=== PATIENT | male | born 1945 | race Caucasian/White ===

== ENCOUNTER 2017-06-19 18:14 | Emergency (ER) | payer OTHER ==
[~2017-06-19] VITALS: Ht 175.3 cm; Wt 85.0 kg
[~2017-06-19 18:14] MED LIST: ALL300 PO; ASPCH81 PO; BND25X PO; CPR500 PO; LISI-461 PO; METR-163 PO; NAPR-1169 PO; PRLSR20 PO; SIMV80TA2 PO
[2017-06-19 18:27] VITALS: TEMP 36.9; Ht 175.3 cm; Wt 85.0 kg
[2017-06-19 18:32] VITALS: O2SAT 94
[2017-06-19] MEDS ORDERED: ALLO300T2 PO (18:47)
[2017-06-19] MEDS ORDERED: ASPI81TA28 PO (18:47)
--- NOTE | 2017-06-19 18:49 | DIAGNOSTIC IMAGING REPORT ---
CHEST 1 VW FRONT-NOT PORTABLE CLINICAL HISTORY: Off-balance/history cardiac stent. COMPARISON STUDY: No previous studies for comparison. FINDINGS: Note is made of moderate elevation of the left hemidiaphragm. Minimal bibasilar opacities favor atelectasis. There is a suspected hiatal hernia. There is mild cardiomegaly without evidence for pulmonary edema. There is no pneumothorax or pleural effusion. IMPRESSION: 1. No acute cardiopulmonary findings. 2. Moderate elevation of the left hemidiaphragm. 3. Suspected moderate to large hiatal hernia. Electronically signed by: Darin Brooke M.D. 06/19/2017 6:48 PM Dictated Date/Time: 06/19/2017 6:47 PM
[2017-06-19 19:06] LABS: BASO % 0.2 %; BASO ABS # 0.02 K/uL (0-0.2); EOS ABS # 0.16 K/uL (0-0.5); HEMATOCRIT 42.7 % (42-52); HEMOGLOBIN 15.1 g/dL (14.0-18.0); IG# 0.01 K/uL (0.00-0.02); LYMPH % 35.3 %; LYMPH ABS # 2.86 K/uL (1.2-3.4); MEAN CELL VOLUME 94.5 fL (80-100); MEAN CORPUSCULAR HEMOGLOBIN 33.4 pg (25-34); MEAN CORPUSCULAR HGB CONC 35.4 g/dl (32-36); MEAN PLATELET VOLUME 9.1 fL (7.4-10.4); MONO % 7.9 %; MONO ABS # 0.64 K/uL (0.11-0.59); NEUT % 54.5 %; NEUT ABS # 4.41 K/uL (1.4-6.5); PLATELET COUNT 151 K/uL (130-400); RED CELL DISTRIBUTION WIDTH CV 13.3 % (11.5-14.5); RED CELL DISTRIBUTION WIDTH SD 45.3 fL (36.4-46.3)
[2017-06-19 19:22] LABS: INR 1.1 (0.9-1.1); PTT PATIENT 25.2 SECONDS (21.0-31.0)
[2017-06-19 19:25] LABS: ALBUMIN 3.7 gm/dl (3.4-5.0); CALCIUM 8.4 mg/dl (8.5-10.1)
[2017-06-19 19:27] VITALS: BP 123/86; PULSE 59; O2SAT 97
[2017-06-19 19:30] LABS: CKMB 3.1 ng/ml (0.5-3.6); TOTAL PROTEIN 7.4 gm/dl (6.4-8.2)
[2017-06-19] MEDS ORDERED: OPTIRAY 320 IV PRN (20:00)
--- NOTE | 2017-06-19 20:21 | DIAGNOSTIC IMAGING REPORT ---
ANGIOGRAPHY HEAD COMBO CLINICAL HISTORY: Off-balance, slurred speech. COMPARISON STUDY: No previous studies for comparison. TECHNIQUE: Unenhanced and arterial phase imaging of the head was performed. Injection of 117 cc Optiray 320 IV was uneventful. Sagittal and coronal reconstructions as well as maximal intensity projections were reviewed on an independent 3-D workstation. FINDINGS: No acute intracranial hemorrhage, midline shift or mass effect is present. Ventricular system is unremarkable for age. Basilar cisterns are patent. There are no extra-axial collections. White matter hypodensity suggests small vessel disease. There are no findings to suggest acute dural sinus thrombosis or acute territorial infarct. There are no significant calvarial abnormalities. There is mild mucosal thickening of the sinuses. 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 There is no evidence for rupture. 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 No additional intracranial aneurysms are identified. There is no abrupt vessel cut off. There is minimal atherosclerotic plaque within the bilateral cavernous carotids. IMPRESSION: 1. 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 No evidence for rupture. Neurosurgical consultation is recommended. Findings discussed with Destinee Ma at time of dictation. 2. 4 mm left MCA trifurcation aneurysm. 3. No acute intracranial findings. 4. No abrupt vessel cut off. Electronically signed by: Darin Brooke M.D. 06/19/2017 8:20 PM Dictated Date/Time: 06/19/2017 8:03 PM
--- NOTE | 2017-06-19 20:30 | DIAGNOSTIC IMAGING REPORT ---
CT ANGIOGRAPHY OF THE NECK WITH CONTRAST CLINICAL HISTORY: HISTORY CARDIAC STENTS OFF BALANCE COMPARISON STUDY: No previous studies for comparison. Technique: CT angiography of the carotid and vertebral arteries was obtained using Ogorod 320 IV and 3D reconstruction on an independent workstation. NASCET criteria was utilized. A dose lowering technique was utilized adhering to the principles of ALARA. Findings: Lung apices are clear. There is no cervical lymphadenopathy. There are no suspicious osseous lesions. No cervical spine fracture is identified. There is moderate multilevel degenerative disc disease and facet arthrosis. Craniocervical junction is intact. There is mild S-shaped curvature of the cervical spine. There is moderate plaque within the proximal right internal carotid artery without significant stenosis. There is mild plaque within the proximal left internal carotid artery without stenosis. There is calcified plaque at the origin of the left vertebral artery which makes evaluation difficult. There is suspected mild to moderate stenosis at the origin of the left vertebral artery. The right vertebral artery is patent. There is mild mucosal thickening of the sinuses. IMPRESSION: 1. Moderate plaque within the proximal bilateral internal carotid arteries, greater on the right. No significant stenosis. No dissection. 2. Mild to moderate stenosis at the origin of the left vertebral artery. Electronically signed by: Darin Brooke M.D. 06/19/2017 8:28 PM Dictated Date/Time: 06/19/2017 8:21 PM
--- NOTE | 2017-06-19 21:39 | EMERGENCY ROOM VISIT NOTE ---
History First contact with patient: 18:22 Chief Complaint: ALCOHOL OVERDOSE Stated Complaint: ETOH Nursing Triage Summary: pt reports he felt dizzy this morning and then rubi 3-4 beers and 3 shots. Pt reports that he drinks about a case of beer/day. Hx of NV at age 57 with stents placed. VS stable [employer] and BSG 117. Pt is alert and oriented. Speech slurred. History of Present Illness The patient is a 71 year old male who presents to the Emergency Room via BLS with chief complaints of feeling off balance. The patient drinks alcohol on a daily basis. He states normally he drinks a case of beer a day. Today he had several beers and 2 shots of whiskey. He states that this morning when he woke up at 6 AM he felt disoriented and off balance. He states this has been going on intermittently for several months. He thought maybe he was having a stroke. The states in the morning she did not notice anything different with the patient. This afternoon when the son was at their house he stated he thought his speech was slurred. It is unclear if that is due to the alcohol or not. The patient currently denies any headache, dizziness or visual changes. The patient denies any chest pain or shortness of breath. The patient states he has not seen his doctor for 10 years. He does have a history of an NV at age 57 with 2 or 3 cardiac stents. Review of Systems 10 system review was performed and was negative unless stated otherwise history of present illness. Social History Smoking Status: Never Smoker Alcohol Use: heavy Marital Status: Housing Status: lives with family Current/Historical Medications Scheduled Allopurinol (Zyloprim), 300 MG PO DAILY Aspirin (Aspirin Ec), 81 MG PO DAILY Naproxen (Naprosyn), 500 MG PO BID Physical Exam Vital Signs Date Time Temp Pulse Resp B/P (MAP) Pulse Ox O2 Delivery O2 Flow Rate FiO2 06/19/17 19:27 59 20 123/86 97 Room Air 06/19/17 18:32 94 Room Air 06/19/17 18:27 36.9 79 20 137/91 94 Room Air 06/19/17 18:26 60 Physical Exam GENERAL: 71-year-old white male appears intoxicated. The patient's speech is slurred. MENTAL Status: Patient is alert and oriented. He is answering questions appropriately. EYES: PERRLA. EOMs intact. Funduscopic FACE: No visible facial droop noted. EARS: Canals clear. TMs without fluid level noted. NECK: Supple, no lymphadenopathy noted. No carotid bruits noted. LUNGS: Clear auscultation without wheezes rales or rhonchi. CARDIAC: Regular rate and rhythm without murmur. Pulses is full and equal throughout. NEURO:Cranial nerves two through 12 intact. Cerebellar function intact with [id number]. Patient had difficulty with fine motor maneuvers but stated it was due to his arthritis in his hands. Medical Decision & Procedures ER Provider Diagnostic Interpretation: CT ANGIOGRAPHY OF THE NECK WITH CONTRAST CLINICAL HISTORY: HISTORY CARDIAC STENTS OFF BALANCE COMPARISON STUDY: No previous studies for comparison. Technique: CT angiography of the carotid and vertebral arteries was obtained using Optiray 320 IV and 3D reconstruction on an independent workstation. NASCET criteria was utilized. A dose lowering technique was utilized adhering to the principles of ALARA. Findings: Lung apices are clear. There is no cervical lymphadenopathy. There are no suspicious osseous lesions. No cervical spine fracture is identified. There is moderate multilevel degenerative disc disease and facet arthrosis. Craniocervical junction is intact. There is mild S-shaped curvature of the cervical spine. There is moderate plaque within the proximal right internal carotid artery without significant stenosis. There is mild plaque within the proximal left internal carotid artery without stenosis. There is calcified plaque at the origin of the left vertebral artery which makes evaluation difficult. There is suspected mild to moderate stenosis at the origin of the left vertebral artery. The right vertebral artery is patent. There is mild mucosal thickening of the sinuses. IMPRESSION: 1. Moderate plaque within the proximal bilateral internal carotid arteries, greater on the right. No significant stenosis. No dissection. 2. Mild to moderate stenosis at the origin of the left vertebral artery. Electronically signed by: Darin Brooke M.D. 06/19/2017 8:28 PM ANGIOGRAPHY HEAD COMBO CLINICAL HISTORY: Off-balance, slurred speech. COMPARISON STUDY: No previous studies for comparison. TECHNIQUE: Unenhanced and arterial phase imaging of the head was performed. Injection of 117 cc Optiray 320 IV was uneventful. Sagittal and coronal reconstructions as well as maximal intensity projections were reviewed on an independent 3-D workstation. FINDINGS: No acute intracranial hemorrhage, midline shift or mass effect is present. Ventricular system is unremarkable for age. Basilar cisterns are patent. There are no extra-axial collections. White matter hypodensity suggests small vessel disease. There are no findings to suggest acute dural sinus thrombosis or acute territorial infarct. There are no significant calvarial abnormalities. There is mild mucosal thickening of the sinuses. 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 There is no evidence for rupture. 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 No additional intracranial aneurysms are identified. There is no abrupt vessel cut off. There is minimal atherosclerotic plaque within the bilateral cavernous carotids. IMPRESSION: 1. 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 No evidence for rupture. Neurosurgical consultation is recommended. Findings discussed with Destinee Ma at time of dictation. 2. 4 mm left MCA trifurcation aneurysm. 3. No acute intracranial findings. 4. No abrupt vessel cut off. Electronically signed by: Darin Brooke M.D. 06/19/2017 8:20 PM CHEST 1 VW FRONT-NOT PORTABLE CLINICAL HISTORY: Off-balance/history cardiac stent. COMPARISON STUDY: No previous studies for comparison. FINDINGS: Note is made of moderate elevation of the left hemidiaphragm. Minimal bibasilar opacities favor atelectasis. There is a suspected hiatal hernia. There is mild cardiomegaly without evidence for pulmonary edema. There is no pneumothorax or pleural effusion. IMPRESSION: 1. No acute cardiopulmonary findings. 2. Moderate elevation of the left hemidiaphragm. 3. Suspected moderate to large hiatal hernia. Electronically signed by: Darin Brooke M.D. 06/19/2017 6:48 PM Laboratory Results 06/19/17 18:52 Red Blood Count 4.52, Mean Corpuscular Volume 94.5, Mean Corpuscular Hemoglobin 33.4, Mean Corpuscular Hemoglobin Concent 35.4, Mean Platelet Volume 9.1, Neutrophils (%) (Auto) 54.5, Lymphocytes (%) (Auto) 35.3, Monocytes (%) (Auto) 7.9, Eosinophils (%) (Auto) 2.0, Basophils (%) (Auto) 0.2, Neutrophils # (Auto) 4.41, Lymphocytes # (Auto) 2.86, Monocytes # (Auto) 0.64, Eosinophils # (Auto) 0.16, Basophils # (Auto) 0.02 2/25/18 18:52 Test 06/19/17 18:43 06/19/17 18:52 06/19/17 18:57 06/19/17 19:30 Ethyl Alcohol mg/dL 295.7 mg/dl (0-3) White Blood Count 8.10 K/uL (4.8-10.8) Red Blood Count 4.52 M/uL (4.7-6.1) Hemoglobin 15.1 g/dL (14.0-18.0) Hematocrit 42.7 % (42-52) Mean Corpuscular Volume 94.5 fL (80-100) Mean Corpuscular Hemoglobin 33.4 pg (25-34) Mean Corpuscular Hemoglobin Concent 35.4 g/dl (32-36) Platelet Count 151 K/uL (130-400) Mean Platelet Volume 9.1 fL (7.4-10.4) Neutrophils (%) (Auto) 54.5 % Lymphocytes (%) (Auto) 35.3 % Monocytes (%) (Auto) 7.9 % Eosinophils (%) (Auto) 2.0 % Basophils (%) (Auto) 0.2 % Neutrophils # (Auto) 4.41 K/uL (1.4-6.5) Lymphocytes # (Auto) 2.86 K/uL (1.2-3.4) Monocytes # (Auto) 0.64 K/uL (0.11-0.59) Eosinophils # (Auto) 0.16 K/uL (0-0.5) Basophils # (Auto) 0.02 K/uL (0-0.2) RDW Standard Deviation 45.3 fL (36.4-46.3) RDW Coefficient of Variation 13.3 % (11.5-14.5) Immature Granulocyte % (Auto) 0.1 % Immature Granulocyte # (Auto) 0.01 K/uL (0.00-0.02) Prothrombin Time 11.6 SECONDS (9.0-12.0) Prothromb Time International Ratio 1.1 (0.9-1.1) Activated Partial Thromboplast Time 25.2 SECONDS (21.0-31.0) Partial Thromboplastin Ratio 1.0 Anion Gap 8.0 mmol/L (3-11) Est Creatinine Clear Calc Drug Dose 72.2 ml/min Estimated GFR () 86.8 Estimated GFR (Non- 74.9 BUN/Creatinine Ratio 11.3 (10-20) Calcium Level 8.4 mg/dl (8.5-10.1) Total Bilirubin 0.5 mg/dl (0.2-1) Direct Bilirubin 0.2 mg/dl (0-0.2) Aspartate Amino Transf (AST/SGOT) 31 U/L (15-37) Alanine Aminotransferase (ALT/SGPT) 29 U/L (12-78) Alkaline Phosphatase 70 U/L (45-117) Total Creatine Kinase 148 U/L (39-308) Creatine Kinase MB 3.1 ng/ml (0.5-3.6) Creatine Kinase MB Ratio 2.1 (0-3.0) Total Protein 7.4 gm/dl (6.4-8.2) Albumin 3.7 gm/dl (3.4-5.0) Lipase 160 U/L (73-393) Bedside Troponin I < 0.030 ng/ml (0-0.045) Urine Color YELLOW Urine Appearance CLEAR (CLEAR) Urine pH 5.0 (4.5-7.5) Urine Specific [place] 1.007 (1.000-1.030) Urine Protein TRACE (NEG) Urine Glucose (UA) NEG (NEG) Urine Ketones NEG (NEG) Urine Occult Blood NEG (NEG) Urine Nitrite NEG (NEG) Urine Bilirubin NEG (NEG) Urine Urobilinogen NEG (NEG) Urine Leukocyte Esterase NEG (NEG) Urine WBC (Auto) 0 /hpf (0-5) Urine RBC (Auto) 0-4 /hpf (0-4) Urine Hyaline Casts (Auto) 0 /lpf (0-5) Urine Epithelial Cells (Auto) 0-5 /lpf (0-5) Urine Bacteria (Auto) NEG (NEG) ECG Per My Interpretation Indication: other (Off-balance/ataxia) Rhythm: sinus with SA Findings: 1st degree AV block, no acute ischemic change ED Course Patient was evaluated. EKG was ordered and interpreted as above without any acute findings. The patient's EMR and medication list were reviewed. The patient was placed on a monitor and continuous pulse ox. CBC and differential, complete metabolic profile, coags, CK-MB, [id number] troponin, renal profile was ordered. Medical alcohol was ordered and was 295.7. Urinalysis was ordered. Chest x-ray was ordered and interpreted as above without any acute findings besides a large hiatal hernia.. CT of the head and CT angiogram of the head and neck was also ordered. This was interpreted by the radiologist as above. Labs are reviewed. The patient CBC and complete metabolic profile were unremarkable. The patient's [id number] troponin was normal. Urine dip was negative. Urinalysis was negative. CT of the head and angiogram revealed a 1.1 cm aneurysm as well as a 4 mm aneurysm. There was also some stenosis noted in the internal carotid arteries as well as the left vertebral artery. The patient's case was discussed with Dr. Santiago who independently evaluated the patient and agree with treatment plan. The plan was to keep the patient here until he was clinically sober and then reevaluate the patient. In the interim we would contact [facility] neurosurgery about the patient for follow-up. I went to inform the patient of the treatment plan and he had already ripped out his IV site and was dressed and was sitting on the edge of the stretcher and stated he was going home. I discussed the findings with both the patient and his family members. The patient then informed me that he was told 10 years ago that he had an aneurysm and they wanted to send him to neurosurgery at that time and he declined. The patient states he did not want to do anything at that time and he does not want to do anything now. I discussed the risks with the patient I am not getting follow-up for the findings. This included intracranial bleed, stroke, . He verbalized understanding. The family members also did not want to stay until the patient was clinically sober for us to reevaluate the patient. They agreed to sign out AMA I had both the patient and the son who was sober signed the AMA papers. Medical Decision Differential diagnosis include alcohol intoxication, stroke, TIA, NV, a UTI with altered mental status, aneurysm, intracranial bleed Due to the patient's findings on CT, we felt it was necessary to keep the patient until he was clinically sober to reevaluate the patient neurologically. Also we wanted to make sure that the patient had follow-up with neurosurgery by contacting [facility] while he was in the emergency room. The patient did not agree with treatment plan and signed out AMA. See emergency room course for further discussion. [place] Drug Monitoring Program Search Results: patient reviewed within database Medication Reconcilliation Current Medication List: was personally reviewed by me Blood Pressure Screening Patient's blood pressure: Normal blood pressure Impression Primary Impression: Alcohol use with intoxication Additional Impressions: Brain aneurysm Vertebral artery stenosis Internal carotid artery stenosis Departure Information Dispostion Against Medical Advice Condition GOOD Referrals No Doctor, Assigned (PCP) Forms HOME CARE DOCUMENTATION FORM, IMPORTANT VISIT INFORMATION Patient Instructions Aneurysm Brain, My [facility] Additional Instructions You signed out AGAINST MEDICAL ADVICE today from the emergency room. It was recommended that you stay until you were clinically sober for reevaluation. Also we wanted to contact neurosurgery about your aneurysm and he declined. Recommend follow-up with neurosurgery on your own for definitive treatment. If you do not follow-up there is possibility of aneurysm rupture and . Problem Qualifiers
== END 2017-06-19 21:09 | disposition left against medical advice (07) ==
LOC: EDBD 18:14 → C.EDB 18:17
DX: F10.129 Alcohol abuse with intoxication, unspecified (principal); I67.1 Cerebral aneurysm, nonruptured; I65.02 Occlusion and stenosis of left vertebral artery; I65.23 Occlusion and stenosis of bilateral carotid arteries; Y90.8 Blood alcohol level of 240 mg/100 ml or more; Z53.21 Procedure and treatment not carried out due to patient leaving prior to being seen by health care provider; I25.2 Old myocardial infarction; Z95.5 Presence of coronary angioplasty implant and graft; Z79.82 Long term (current) use of aspirin; Z79.1 Long term (current) use of non-steroidal anti-inflammatories (NSAID)

== ENCOUNTER 2020-01-28 19:08 | Inpatient (IN) ==
[~2020-01-28 19:08] MED LIST changes: -ALL300 PO; -ASPCH81 PO; -BND25X PO; -CPR500 PO; -LISI-461 PO; -METR-163 PO; -NAPR-1169 PO; -PRLSR20 PO; +RAPID SEQUENCE INDUCTION BAG ONE; -SIMV80TA2 PO
--- OUTSIDE RECORDS SUMMARY | 2020-01-28 19:11 | External Medical Summary | Continuity of Care Document ---
:1945 Author Name Tello Rowley Address Unavailable Unavailable , Care Team Providers Name Role Phone Collette IYER Unavailable [email or web address] Unavailable Unavailable Problems Active medical history not documented Allergies and Adverse Reactions Allergy history not documented Medications Medications not documented Procedures Procedures not documented Immunizations Immunizations not documented Plan of Treatment Planned Observations Planned Goals not documented Results No Known Results Results not documented
[2020-01-28] MEDS ORDERED: SODIUM CHLORIDE 0.9% 500 ML IV SCH (19:30)
[2020-01-28 19:32] LABS: Basophils # (auto) 0.03 K/uL (0-0.2); Basophils % (auto) 0.2 %; Eosinophils # (auto) 0.05 K/uL (0-0.5); Eosinophils % (auto) 0.3 %; Hematocrit (blood only) 42.1 % (42-52); Hemoglobin 14.2 g/dL (14.0-18.0); Immature Granulocytes # (auto) 0.08 K/uL (0.00-0.02); Immature Granulocytes % (auto) 0.5 %; Lymphocytes # (auto) 2.18 K/uL (1.2-3.4); Lymphocytes % (auto) 12.5 %; Mean Corpuscular Hemoglobin 32.9 pg (25-34); Mean Corpuscular Hgb Conc 33.7 g/dL (32-36); Mean Corpuscular Volume 97.5 fL (80-100); Mean Platelet Volume 9.2 fL (7.4-10.4); Monocytes # (auto) 1.24 K/uL (0.11-0.59); Monocytes % (auto) 7.1 %; Neutrophils # (auto) 13.88 K/uL (1.4-6.5); Neutrophils % (auto) 79.4 %; Platelet Count 177 K/uL (130-400); RDW Coefficient of Variation 12.9 % (11.5-14.5); RDW Standard Deviation 46.1 fL (36.4-46.3); Red Blood Count 4.32 M/uL (4.7-6.1); White Blood Count 17.46 K/uL (4.8-10.8)
--- NOTE | 2020-01-28 19:40 | Emergency Department Note ---
History of Present Illness General Chief Complaint: Unresponsive Source: patient Mode of arrival: ambulatory Limitations: no limitations History of Present Illness Provider complaint: altered mental status This is a 74-year-old male who presents to the ED via ambulance unresponsive. The patient was last known well about 2:30 PM. About 5 or 6 PM, the patient was found by family unresponsive. EMS was called. The patient has a reported history of cardiac stents and has been found in A. fib per EMS. The patient's prehospital blood sugar was 204. 0.4 mg of Narcan was administered without improvement. The patient had a blood pressure prehospital of 150/80 and an axillary temp of 96. He was saturating at 100% with BVM assist. No additional history is available. Family has not yet arrived. Home Medications Home Medications Medication Instructions Recorded Confirmed Type Unobtainable 01/29/20 01/29/20 History Allergies Allergy/AdvReac Type Severity Reaction Status Date / Time warfarin Allergy Unknown . Unverified 10/17/17 09:48 Past Med/Surg History Social History Smoking Status: Unknown if ever smoked Review of Systems A total of 10 systems reviewed and were otherwise negative Physical Exam Vital Signs Vital Signs - 24 hr 01/28/20 19:14 01/28/20 19:29 01/28/20 19:30 Pulse Rate 101 H Pulse Rate [Right Finger] Respiratory Rate Respiratory Effort / Characteristics Respiratory Depth Blood Pressure 189/98 H Blood Pressure [Right Arm] Blood Pressure Mean 128 Blood Pressure Mean [Right Arm] Blood Pressure Position Lying Blood Pressure Position [Right Arm] Pulse Oximetry 94 100 Oxygen Delivery Method Ambu-Bag Mechanical Vent Mechanical Vent Fraction of Inspired Oxygen Sepsis Recent Fever Within 48 Hours No Sepsis New/Unexplained Change in Mental Status No Sepsis Action Taken by Nursing No Action Required End-Tidal CO2 01/28/20 19:35 01/28/20 19:45 01/28/20 20:07 Pulse Rate 59 L Pulse Rate [Right Finger] 54 L 91 H Respiratory Rate 20 20 18 Respiratory Effort / Characteristics Mechanically Ventilated Mechanically Ventilated Respiratory Depth Blood Pressure Blood Pressure [Right Arm] 152/88 H 174/89 H Blood Pressure Mean Blood Pressure Mean [Right Arm] 109 117 Blood Pressure Position Blood Pressure Position [Right Arm] Lying Lying Pulse Oximetry 99 99 100 Oxygen Delivery Method Mechanical Vent Mechanical Vent Fraction of Inspired Oxygen 40 Sepsis Recent Fever Within 48 Hours Sepsis New/Unexplained Change in Mental Status Sepsis Action Taken by Nursing End-Tidal CO2 26 01/28/20 20:23 01/28/20 20:44 01/28/20 21:23 Pulse Rate 61 Pulse Rate [Right Finger] 44 L 50 L Respiratory Rate 18 18 18 Respiratory Effort / Characteristics Mechanically Ventilated Mechanically Ventilated Respiratory Depth Blood Pressure Blood Pressure [Right Arm] 153/74 H 128/57 L Blood Pressure Mean Blood Pressure Mean [Right Arm] 100 80 Blood Pressure Position Blood Pressure Position [Right Arm] Lying Lying Pulse Oximetry 100 100 100 Oxygen Delivery Method Mechanical Vent Mechanical Vent Fraction of Inspired Oxygen 40 Sepsis Recent Fever Within 48 Hours Sepsis New/Unexplained Change in Mental Status Sepsis Action Taken by Nursing End-Tidal CO2 29 01/28/20 22:50 01/28/20 23:00 01/28/20 23:15 Pulse Rate 65 59 L Pulse Rate [Right Finger] 72 Respiratory Rate 19 12 16 Respiratory Effort / Characteristics Respiratory Depth Normal Blood Pressure 149/91 H 155/91 H Blood Pressure [Right Arm] 149/82 H Blood Pressure Mean 115 114 Blood Pressure Mean [Right Arm] 104 Blood Pressure Position Blood Pressure Position [Right Arm] Lying Pulse Oximetry 92 92 92 Oxygen Delivery Method Room Air Fraction of Inspired Oxygen Sepsis Recent Fever Within 48 Hours Sepsis New/Unexplained Change in Mental Status Sepsis Action Taken by Nursing End-Tidal CO2 01/28/20 23:31 01/28/20 23:46 01/29/20 00:00 Pulse Rate 77 66 79 Pulse Rate [Right Finger] Respiratory Rate 14 16 16 Respiratory Effort / Characteristics Respiratory Depth Blood Pressure 153/77 H 161/78 H 162/104 H Blood Pressure [Right Arm] Blood Pressure Mean 120 111 114 Blood Pressure Mean [Right Arm] Blood Pressure Position Blood Pressure Position [Right Arm] Pulse Oximetry 93 95 93 Oxygen Delivery Method Fraction of Inspired Oxygen Sepsis Recent Fever Within 48 Hours Sepsis New/Unexplained Change in Mental Status Sepsis Action Taken by Nursing End-Tidal CO2 01/29/20 00:16 01/29/20 00:31 01/29/20 00:46 Pulse Rate 50 L 55 L 62 Pulse Rate [Right Finger] Respiratory Rate 16 16 16 Respiratory Effort / Characteristics Respiratory Depth Blood Pressure 151/106 H 169/86 H 151/97 H Blood Pressure [Right Arm] Blood Pressure Mean 119 106 109 Blood Pressure Mean [Right Arm] Blood Pressure Position Blood Pressure Position [Right Arm] Pulse Oximetry 93 94 94 Oxygen Delivery Method Fraction of Inspired Oxygen Sepsis Recent Fever Within 48 Hours Sepsis New/Unexplained Change in Mental Status Sepsis Action Taken by Nursing End-Tidal CO2 01/29/20 01:00 01/29/20 01:16 Pulse Rate 64 55 L Pulse Rate [Right Finger] Respiratory Rate 16 16 Respiratory Effort / Characteristics Respiratory Depth Blood Pressure 158/91 H 161/81 H Blood Pressure [Right Arm] Blood Pressure Mean 105 118 Blood Pressure Mean [Right Arm] Blood Pressure Position Blood Pressure Position [Right Arm] Pulse Oximetry 94 93 Oxygen Delivery Method Fraction of Inspired Oxygen Sepsis Recent Fever Within 48 Hours Sepsis New/Unexplained Change in Mental Status Sepsis Action Taken by Nursing End-Tidal CO2 CONSTITUTIONAL/VITAL SIGNS: Reviewed / noted above. GENERAL: The patient is unresponsive to painful stimuli. He does appear to be breathing but in an agonal way. INTEGUMENTARY: Warm, dry, and [place]. HEAD: Normocephalic. EYES: without scleral icterus or trauma. ENT/OROPHARYNX: Clear. LYMPHADENOPATHY/NECK: Is supple without lymphadenopathy or meningismus. RESPIRATORY: Coarse rhonchi bilaterally. CARDIOVASCULAR: Regular rate and slightly irregular rhythm. GI/ABDOMEN: Soft and nontender. No organomegaly or pulsatile mass. EXTREMITIES: Warm and well perfused. BACK: No CVA tenderness. NEUROLOGICAL: Patient is unresponsive. No Babinski response. No response to painful stimuli in extremities. Agonal breathing. MUSCULOSKELETAL: Normally developed with good muscle tone. No obvious trauma. TRIAGE NURSING DOCUMENTATION REVIEWED. Procedures ABG Interpretation ABG Interpretation 1: ABG Results: pH 7.4, PCO2 is 29.9, PO2 is 95. Interpretation: abnormal Additional Comments: Normal pH. Hyperventilation. Good oxygenation. This was done on 40% FiO2 at a rate of 18 mm tidal volume of 450. Intubation Time out performed: Yes sedative: none paralytic: Succinylcholine Mg Given: 100 Laryngoscope: fiber optic video scope ET Tube Size: 7.5 ET Tube Uncuffed: Yes Tube Secured Depth (cm): 24 Tube Secured Location: lips Tube Placement Confirmation: visualized tube passing through cords, equal breath sounds bilaterally, no breath sounds over epigastrium and confirmation by capnometry Patient Tolerated Procedure: well Intubation Complications: none Course Administered Medications Discontinued Medications Sodium Chloride (Nss) 500 mls @ 999 mls/hr IV .Q31M [facility] Stop: 01/28/20 20:00 Last Infusion: 01/29/20 00:21 Dose: 0 mls/hr Documented by: [id number] Admin: 01/28/20 19:35 Dose: 999 mls/hr Documented by: [id number] Lorazepam (Ativan) 2 mg in 4 mls @ 4 mls/min IV NOW STA Stop: 01/28/20 19:45 Last Admin: 01/28/20 19:45 Dose: 4 mls/min Documented by: [id number] Lorazepam (Ativan) 2 mg in 4 mls @ 4 mls/min IV NOW STA Stop: 01/28/20 20:34 Last Admin: 01/28/20 20:43 Dose: 4 mls/min Documented by: [id number] Ioversol (Optiray 320 125ml) 120 ml IV ONCE ONE Stop: 01/28/20 19:53 Last Admin: 01/28/20 19:52 Dose: 120 ml Documented by: [id number] Lorazepam (Lorazepam 2 Mg/4 Ml Vial) Confirm Administered Dose 2 mg .ROUTE .STK- MED ONE Stop: 01/28/20 19:46 Last Admin: 01/28/20 20:06 Dose: Not Given Documented by: [id number] Lorazepam (Lorazepam 2 Mg/4 Ml Vial) Confirm Administered Dose 2 mg .ROUTE .STK- MED ONE Stop: 01/28/20 22:47 Last Admin: 01/28/20 23:07 Dose: 2 mg Documented by: [id number] Miscellaneous (Rapid Sequence Induction Bag) Confirm Administered Dose 1 ea .ROUTE .STK-MED ONE Stop: 01/28/20 19:02 Last Admin: 01/28/20 19:22 Dose: 1 ea Documented by: [id number] Morphine Sulfate (Morphine Sulfate 4 Mg/Ml 1 Ml Carp\Vial) Confirm Administered Dose 4 mg .ROUTE .STK-MED ONE Stop: 01/28/20 20:56 Last Admin: 01/28/20 21:02 Dose: 4 mg Documented by: [id number] Morphine Sulfate (Morphine Sulfate 4 Mg/Ml 1 Ml Carp\Vial) Confirm Administered Dose 4 mg .ROUTE .STK-MED ONE Stop: 01/28/20 22:51 Last Admin: 01/28/20 23:07 Dose: 4 mg Documented by: [id number] Morphine Sulfate (Morphine Sulfate 10 Mg/Ml Carp/Vial) Confirm Administered Dose 10 mg .ROUTE .STK-MED ONE Stop: 01/28/20 23:19 Last Increment: 01/28/20 23:21 Dose: 6 mg Documented by: [id number] Medical Decision Making Differential Diagnosis Differential includes acute cardiac dysrhythmia, myocardial infarction, CVA, TIA, dehydration, anemia, electrolyte disturbance, seizure, trauma, intracranial bleeding, acute vascular catastrophe, thoracic aortic dissection, PE, abdominal aortic aneurysm rupture, infection, hypoglycemia, overdose, trauma. Medical Records Attestation: I reviewed the patient's medical records. Home Medications Current Medication List: was personally reviewed by me Laboratory Data Attestation: I reviewed the patient's lab results. : 01/28/20 19:13 01/28/20 19:13 Lab Results 01/28/20 01/28/20 01/28/20 Range/Units 19:13 19:13 19:13 WBC 17.46 H (4.8-10.8) K/uL RBC 4.32 L (4.7-6.1) M/uL Hgb 14.2 (14.0-18.0) g/dL POC Hgb (14.0-18.0) g/dl Hct 42.1 (42-52) % POC Hct (42-52) % MCV 97.5 (80-100) fL MCH 32.9 (25-34) pg MCHC 33.7 (32-36) g/dL RDW Std Deviation 46.1 (36.4-46.3) fL RDW Coeff of Toni 12.9 (11.5-14.5) % Plt Count 177 (130-400) K/uL MPV 9.2 (7.4-10.4) fL Immature Gran % (Auto) 0.5 % Neut % (Auto) 79.4 % Lymph % (Auto) 12.5 % Robertson % (Auto) 7.1 % Eos % (Auto) 0.3 % Baso % (Auto) 0.2 % Neut # (Auto) 13.88 H (1.4-6.5) K/uL Lymph # (Auto) 2.18 (1.2-3.4) K/uL Robertson # (Auto) 1.24 H (0.11-0.59) K/uL Eos # (Auto) 0.05 (0-0.5) K/uL Baso # (Auto) 0.03 (0-0.2) K/uL Immature Gran # (Auto) 0.08 H (0.00-0.02) K/uL PT 12.6 H (9.0-12.0) Seconds INR 1.2 H (0.9-1.1) POC Sodium (135-144) mmol/L Sodium 138 (136-145) mmol/L POC Potassium (3.3-5.0) mmol/L Potassium 2.9 L (3.5-5.1) mmol/L POC Chloride (101-112) mmol/L Chloride 106 (98-107) mmol/L Carbon Dioxide 19 L (21-32) mmol/L POC Total CO2 (24-31) mmol/L Anion Gap 13.0 H (3-11) POC Anion Gap (16-25) mmol/L POC BUN (7-18) mg/dl BUN 13 (7-18) mg/dl Creatinine 1.01 (0.6-1.4) mg/dl POC Creatinine (0.6-1.3) mg/dl Est Cr Clr Drug Dosing 73.3 ml/min Est GFR ( Amer) 83.9 Est GFR (Non-Af Amer) 72.4 BUN/Creatinine Ratio 13.2 (10-20) Glucose 231 H (70-99) mg/dl POC Glucose (other) (70-99) mg/dl Lactate (0.4-2.0) mmol/L Calcium 8.7 (8.5-10.1) mg/dl POC Ioniz Calcium [place] (1.12-1.32) mmol/l Magnesium 1.7 L (1.8-2.4) mg/dl Total Bilirubin 1.2 H (0.2-1) mg/dl AST 36 (15-37) U/L ALT 26 (12-78) U/L Alkaline Phosphatase 74 (45-117) U/L Ammonia (11-32) umol/L Total Creatine Kinase 146 (39-308) U/L Troponin I < 0.015 (0-0.045) ng/ml Total Protein 7.7 (6.4-8.2) gm/dl Albumin 3.8 (3.4-5.0) gm/dl Globulin 3.9 (2.5-4.0) gm/dl Albumin/Globulin Ratio 1.0 (0.9-2) TSH 5.410 H (0.300-4.500) uIu/ml Free T4 1.18 (0.8-1.6) ng/dl Urine Color Urine Appearance (Clear) Urine pH (4.5-7.5) Ur Specific [place] (1.000-1.030) Urine Protein (Negative) Urine Glucose (UA) (Negative) Urine Ketones (Negative) Urine Blood (Negative) Urine Nitrite (Negative) Urine Bilirubin (Negative) Urine Urobilinogen (Negative) Ur Leukocyte Esterase (Negative) Urine WBC (Auto) (0-5) /hpf Urine RBC (Auto) (0-4) /hpf U Hyaline Cast (Auto) (0-5) /lpf U Epithel Cells (Auto) (0-5) /lpf Urine Bacteria (Auto) (Negative) Salicylates (2.8-20) mg/dl Urine Opiates Screen (Neg) Ur Methadone, Qual (Neg) Acetaminophen (10-30) ug/ml Urine Barbiturates (Neg) Ur Phencyclidine (PCP) (Neg) U Amphetamin/Meth Scrn (Neg) MDMA (Ecstasy) Screen (Neg) U Benzodiazepines Scrn (Neg) Ur Cocaine Metabolite (Neg) U Marijuana (THC) Screen (Neg) Ethyl Alcohol mg/dL (0-3) mg/dl Blood Type Antibody Screen 01/28/20 01/28/20 01/28/20 Range/Units 19:13 19:21 19:24 WBC (4.8-10.8) K/uL RBC (4.7-6.1) M/uL Hgb (14.0-18.0) g/dL POC Hgb 13.9 L (14.0-18.0) g/dl Hct (42-52) % POC Hct 41 L (42-52) % MCV (80-100) fL MCH (25-34) pg MCHC (32-36) g/dL RDW Std Deviation (36.4-46.3) fL RDW Coeff of Toni (11.5-14.5) % Plt Count (130-400) K/uL MPV (7.4-10.4) fL Immature Gran % (Auto) % Neut % (Auto) % Lymph % (Auto) % [place] % (Auto) % Eos % (Auto) % Baso % (Auto) % Neut # (Auto) (1.4-6.5) K/uL Lymph # (Auto) (1.2-3.4) K/uL [place] # (Auto) (0.11-0.59) K/uL Eos # (Auto) (0-0.5) K/uL Baso # (Auto) (0-0.2) K/uL Immature Gran # (Auto) (0.00-0.02) K/uL PT (9.0-12.0) Seconds INR (0.9-1.1) POC Sodium 139 (135-144) mmol/L Sodium (136-145) mmol/L POC Potassium 2.9 L (3.3-5.0) mmol/L Potassium (3.5-5.1) mmol/L POC Chloride 104 (101-112) mmol/L Chloride (98-107) mmol/L Carbon Dioxide (21-32) mmol/L POC Total CO2 18 L (24-31) mmol/L Anion Gap (3-11) POC Anion Gap 21.0 (16-25) mmol/L POC BUN 13 (7-18) mg/dl BUN (7-18) mg/dl Creatinine (0.6-1.4) mg/dl POC Creatinine 0.7 (0.6-1.3) mg/dl Est Cr Clr Drug Dosing ml/min Est GFR ( Amer) Est GFR (Non-Af Amer) BUN/Creatinine Ratio (10-20) Glucose (70-99) mg/dl POC Glucose (other) 234 H (70-99) mg/dl Lactate (0.4-2.0) mmol/L Calcium (8.5-10.1) mg/dl POC Ioniz Calcium [place] 1.08 L (1.12-1.32) mmol/l Magnesium (1.8-2.4) mg/dl Total Bilirubin (0.2-1) mg/dl AST (15-37) U/L ALT (12-78) U/L Alkaline Phosphatase (45-117) U/L Ammonia (11-32) umol/L Total Creatine Kinase (39-308) U/L Troponin I (0-0.045) ng/ml Total Protein (6.4-8.2) gm/dl Albumin (3.4-5.0) gm/dl Globulin (2.5-4.0) gm/dl Albumin/Globulin Ratio (0.9-2) TSH (0.300-4.500) uIu/ml Free T4 (0.8-1.6) ng/dl Urine Color Yellow Urine Appearance Clear (Clear) Urine pH 5.5 (4.5-7.5) Ur Specific [place] 1.017 (1.000-1.030) Urine Protein 2+ H (Negative) Urine Glucose (UA) 2+ H (Negative) Urine Ketones 1+ H (Negative) Urine Blood Trace H (Negative) Urine Nitrite Negative (Negative) Urine Bilirubin Negative (Negative) Urine Urobilinogen Negative (Negative) Ur Leukocyte Esterase Negative (Negative) Urine WBC (Auto) 0 (0-5) /hpf Urine RBC (Auto) 0-4 (0-4) /hpf U Hyaline Cast (Auto) 1-5 (0-5) /lpf U Epithel Cells (Auto) 5-10 H (0-5) /lpf Urine Bacteria (Auto) Negative (Negative) Salicylates < 1.7 L (2.8-20) mg/dl Urine Opiates Screen (Neg) Ur Methadone, Qual (Neg) Acetaminophen < 2 L (10-30) ug/ml Urine Barbiturates (Neg) Ur Phencyclidine (PCP) (Neg) U Amphetamin/Meth Scrn (Neg) MDMA (Ecstasy) Screen (Neg) U Benzodiazepines Scrn (Neg) Ur Cocaine Metabolite (Neg) U Marijuana (THC) Screen (Neg) Ethyl Alcohol mg/dL (0-3) mg/dl Blood Type Antibody Screen 01/28/20 01/28/20 01/28/20 Range/Units 19:24 19:38 19:38 WBC (4.8-10.8) K/uL RBC (4.7-6.1) M/uL Hgb (14.0-18.0) g/dL POC Hgb (14.0-18.0) g/dl Hct (42-52) % POC Hct (42-52) % MCV (80-100) fL MCH (25-34) pg MCHC (32-36) g/dL RDW Std Deviation (36.4-46.3) fL RDW Coeff of Toni (11.5-14.5) % Plt Count (130-400) K/uL MPV (7.4-10.4) fL Immature Gran % (Auto) % Neut % (Auto) % Lymph % (Auto) % [place] % (Auto) % Eos % (Auto) % Baso % (Auto) % Neut # (Auto) (1.4-6.5) K/uL Lymph # (Auto) (1.2-3.4) K/uL [place] # (Auto) (0.11-0.59) K/uL Eos # (Auto) (0-0.5) K/uL Baso # (Auto) (0-0.2) K/uL Immature Gran # (Auto) (0.00-0.02) K/uL PT (9.0-12.0) Seconds INR (0.9-1.1) POC Sodium (135-144) mmol/L Sodium (136-145) mmol/L POC Potassium (3.3-5.0) mmol/L Potassium (3.5-5.1) mmol/L POC Chloride (101-112) mmol/L Chloride (98-107) mmol/L Carbon Dioxide (21-32) mmol/L POC Total CO2 (24-31) mmol/L Anion Gap (3-11) POC Anion Gap (16-25) mmol/L POC BUN (7-18) mg/dl BUN (7-18) mg/dl Creatinine (0.6-1.4) mg/dl POC Creatinine (0.6-1.3) mg/dl Est Cr Clr Drug Dosing ml/min Est GFR ( Amer) Est GFR (Non-Af Amer) BUN/Creatinine Ratio (10-20) Glucose (70-99) mg/dl POC Glucose (other) (70-99) mg/dl Lactate 1.4 (0.4-2.0) mmol/L Calcium (8.5-10.1) mg/dl POC Ioniz Calcium [place] (1.12-1.32) mmol/l Magnesium (1.8-2.4) mg/dl Total Bilirubin (0.2-1) mg/dl AST (15-37) U/L ALT (12-78) U/L Alkaline Phosphatase (45-117) U/L Ammonia (11-32) umol/L Total Creatine Kinase (39-308) U/L Troponin I (0-0.045) ng/ml Total Protein (6.4-8.2) gm/dl Albumin (3.4-5.0) gm/dl Globulin (2.5-4.0) gm/dl Albumin/Globulin Ratio (0.9-2) TSH (0.300-4.500) uIu/ml Free T4 (0.8-1.6) ng/dl Urine Color Urine Appearance (Clear) Urine pH (4.5-7.5) Ur Specific [place] (1.000-1.030) Urine Protein (Negative) Urine Glucose (UA) (Negative) Urine Ketones (Negative) Urine Blood (Negative) Urine Nitrite (Negative) Urine Bilirubin (Negative) Urine Urobilinogen (Negative) Ur Leukocyte Esterase (Negative) Urine WBC (Auto) (0-5) /hpf Urine RBC (Auto) (0-4) /hpf U Hyaline Cast (Auto) (0-5) /lpf U Epithel Cells (Auto) (0-5) /lpf Urine Bacteria (Auto) (Negative) Salicylates (2.8-20) mg/dl Urine Opiates Screen Neg (Neg) Ur Methadone, Qual Neg (Neg) Acetaminophen (10-30) ug/ml Urine Barbiturates Neg (Neg) Ur Phencyclidine (PCP) Neg (Neg) U Amphetamin/Meth Scrn Neg (Neg) MDMA (Ecstasy) Screen Neg (Neg) U Benzodiazepines Scrn Neg (Neg) Ur Cocaine Metabolite Neg (Neg) U Marijuana (THC) Screen Neg (Neg) Ethyl Alcohol mg/dL (0-3) mg/dl Blood Type O Positive Antibody Screen NEGATIVE 01/28/20 01/28/20 Range/Units 19:38 19:38 WBC (4.8-10.8) K/uL RBC (4.7-6.1) M/uL Hgb (14.0-18.0) g/dL POC Hgb (14.0-18.0) g/dl Hct (42-52) % POC Hct (42-52) % MCV (80-100) fL MCH (25-34) pg MCHC (32-36) g/dL RDW Std Deviation (36.4-46.3) fL RDW Coeff of Toni (11.5-14.5) % Plt Count (130-400) K/uL MPV (7.4-10.4) fL Immature Gran % (Auto) % Neut % (Auto) % Lymph % (Auto) % [place] % (Auto) % Eos % (Auto) % Baso % (Auto) % Neut # (Auto) (1.4-6.5) K/uL Lymph # (Auto) (1.2-3.4) K/uL [place] # (Auto) (0.11-0.59) K/uL Eos # (Auto) (0-0.5) K/uL Baso # (Auto) (0-0.2) K/uL Immature Gran # (Auto) (0.00-0.02) K/uL PT (9.0-12.0) Seconds INR (0.9-1.1) POC Sodium (135-144) mmol/L Sodium (136-145) mmol/L POC Potassium (3.3-5.0) mmol/L Potassium (3.5-5.1) mmol/L POC Chloride (101-112) mmol/L Chloride (98-107) mmol/L Carbon Dioxide (21-32) mmol/L POC Total CO2 (24-31) mmol/L Anion Gap (3-11) POC Anion Gap (16-25) mmol/L POC BUN (7-18) mg/dl BUN (7-18) mg/dl Creatinine (0.6-1.4) mg/dl POC Creatinine (0.6-1.3) mg/dl Est Cr Clr Drug Dosing ml/min Est GFR ( Amer) Est GFR (Non-Af Amer) BUN/Creatinine Ratio (10-20) Glucose (70-99) mg/dl POC Glucose (other) (70-99) mg/dl Lactate (0.4-2.0) mmol/L Calcium (8.5-10.1) mg/dl POC Ioniz Calcium [place] (1.12-1.32) mmol/l Magnesium (1.8-2.4) mg/dl Total Bilirubin (0.2-1) mg/dl AST (15-37) U/L ALT (12-78) U/L Alkaline Phosphatase (45-117) U/L Ammonia 12.4 (11-32) umol/L Total Creatine Kinase (39-308) U/L Troponin I (0-0.045) ng/ml Total Protein (6.4-8.2) gm/dl Albumin (3.4-5.0) gm/dl Globulin (2.5-4.0) gm/dl Albumin/Globulin Ratio (0.9-2) TSH (0.300-4.500) uIu/ml Free T4 (0.8-1.6) ng/dl Urine Color Urine Appearance (Clear) Urine pH (4.5-7.5) Ur Specific [place] (1.000-1.030) Urine Protein (Negative) Urine Glucose (UA) (Negative) Urine Ketones (Negative) Urine Blood (Negative) Urine Nitrite (Negative) Urine Bilirubin (Negative) Urine Urobilinogen (Negative) Ur Leukocyte Esterase (Negative) Urine WBC (Auto) (0-5) /hpf Urine RBC (Auto) (0-4) /hpf U Hyaline Cast (Auto) (0-5) /lpf U Epithel Cells (Auto) (0-5) /lpf Urine Bacteria (Auto) (Negative) Salicylates (2.8-20) mg/dl Urine Opiates Screen (Neg) Ur Methadone, Qual (Neg) Acetaminophen (10-30) ug/ml Urine Barbiturates (Neg) Ur Phencyclidine (PCP) (Neg) U Amphetamin/Meth Scrn (Neg) MDMA (Ecstasy) Screen (Neg) U Benzodiazepines Scrn (Neg) Ur Cocaine Metabolite (Neg) U Marijuana (THC) Screen (Neg) Ethyl Alcohol mg/dL < 3.0 (0-3) mg/dl Blood Type Antibody Screen Imaging Data Radiologist's Impression: IMPRESSION: 1. Extensive intracranial hemorrhage with large amount of intraventricular and subarachnoid hemorrhage resolving in associated moderate hydrocephalus with periventricular hypodensities compatible with transependymal flow of CSF. 2. Intraparenchymal hemorrhage of the left frontal lobe. 3. 8 mm rightward midline shift at the level of the frontal lobes. Findings were discussed with Dr. Bedolla on 01/28/2020 at 8:04 PM. IMPRESSION: 1. Cardiomegaly without overt pulmonary edema. 2. At least moderate sized hiatal hernia. Enteric tube distal tip projects superiorly over the right lung base within the hernia sac. 3. Endotracheal tube terminates 4.6 cm superior to the rebecca. 4. Indeterminate right paratracheal opacity, possibly projectional MDM Narrative Patient presents to the ED unresponsive. He was last seen normal about 3 or 4 hours prior to arrival. His physical exam reveals that he is unresponsive to painful stimuli. The patient was intubated shortly after his arrival. CT scan of the brain shows an extensive head bleed as noted above. Chest x-ray is also noted above. The patient's white blood cell count was 17. Metabolic panel was unremarkable. Glucose is 230. Troponin was negative. I did speak with the patient's family about the patient's condition. They initially wanted everything done. I did speak with [facility] neurology, Dr. Valdez. We had planned on sending the patient there by helicopter. The family had time to discuss and many family members were present. They ultimately decided that the patient would not want heroic measures and wished the patient to be comfort care only. The patient was given medication for stress and pain. He was made comfort care. He was extubated. The patient will be seen by the hospitalist for continued comfort care and end-of-life measures. Impression & Plan Intracranial hemorrhage, Respiratory failure, Admission for end of life care Critical Care Time Critical Care Time: Yes Total Critical Care Time: 120 I have personally spent 120 minutes of critical care time in the direct management of this patient. This includes bedside care, interpretation of diagnostic studies, and testing, discussion with consultants, patient, and family members, and other required patient management activities. This 120 minutes is in excess of all separately billable procedures. Discharge Plan Visit Data Chief Complaint: Unresponsive ED Provider: Bari Bedolla Discharge Problem: Intracranial hemorrhage, Respiratory failure, Admission for end of life care Patient Disposition: Being Evaluated by Hospitalist Forms Stand Alone Forms: My ChipIn Prescriptions Prescriptions: No Action Unobtainable RF: 0 Referrals Referrals: Beth Toledo MD [Primary Care Provider] -
[2020-01-28 19:42] LABS: Appearance Urine Clear (Clear); Bacteria Urine Automated Negative (Negative); Bilirubin Urine Negative (Negative); Blood Urine Trace (Negative); Color Urine Yellow; Glucose Urine UA 2+ (Negative); Ketones Urine 1+ (Negative); Leukocyte Esterase Urine Negative (Negative); Nitrite Urine Negative (Negative); Protein Urine 2+ (Negative); RBC Urine Automated 0-4 /hpf (0-4); Specific Gravity Urine 1.017 (1.000-1.030); Urobilinogen Urine Negative (Negative); WBC Urine Automated 0 /hpf (0-5); pH Urine 5.5 (4.5-7.5)
[2020-01-28 19:42] LABS: iSTAT Creatinine 0.7 mg/dl (0.6-1.3); iSTAT Hemoglobin 13.9 g/dl (14.0-18.0); iSTAT Ionized Calcium 1.08 mmol/l (1.12-1.32); iSTAT Potassium 2.9 mmol/L (3.3-5.0)
[2020-01-28 19:44] LABS: INR 1.2 (0.9-1.1); Prothrombin Time 12.6 Seconds (9.0-12.0)
[2020-01-28] MEDS ORDERED: LORazepam 2 MG/4 ML VIAL IV STA ×2 (19:44→20:33)
[2020-01-28] MEDS ORDERED: LORazepam 2 MG/4 ML VIAL ONE ×2 (19:45→22:46)
--- NOTE | 2020-01-28 19:50 | XRay Report ---
XR chest 1V portable HISTORY: 74 years-old Male weakness acute respiratory distress COMPARISON: Chest and rib radiographs 10/17/2017 TECHNIQUE: Portable AP view of the chest FINDINGS: Cardiac silhouette is enlarged, increased in size from comparison. Hiatal hernia. Right paratracheal opacity may be projectional. Unchanged left diaphragm elevation with linear subsegmental bibasilar at electasis. No pneumothorax, large pleural effusion or overt pulmonary edema. Degenerative changes of the shoulders and spine. Endotracheal tube terminates 4.6 cm superior to the rebecca. Enteric tube is noted projecting over the medial right lung base, distal tip projected superiorly. IMPRESSION: 1. Cardiomegaly without overt pulmonary edema. 2. At least moderate sized hiatal hernia. Enteric tube distal tip projects superiorly over the right lung base within the hernia sac. 3. Endotracheal tube terminates 4.6 cm superior to the rebecca. 4. Indeterminate right paratracheal opacity, possibly projectional ACT 112: Negative or not required by law. The above report was generated using voice recognition software. It may contain grammatical, syntax o r spelling errors. Electronically signed by: Carlos Etienne M.D. 01/28/2020 7:49 PM
[2020-01-28] MEDS ORDERED: OPTIRAY 320 125ml IV ONE (19:52)
[2020-01-28 19:54] LABS: Alanine Aminotransferase 26 U/L (12-78); Albumin Level 3.8 gm/dl (3.4-5.0); Aspartate Aminotransferase 36 U/L (15-37); BUN Creatinine Ratio 13.2 (10-20); Blood Urea Nitrogen 13 mg/dl (7-18); Calcium 8.7 mg/dl (8.5-10.1); Carbon Dioxide 19 mmol/L (21-32); Chloride 106 mmol/L (98-107); Creatinine Clr Calc Pharmacy 73.3 ml/min; Est GFR (African American) 83.9; Est GFR (Non-African American) 72.4; Glucose 231 mg/dl (70-99); Magnesium 1.7 mg/dl (1.8-2.4); Potassium 2.9 mmol/L (3.5-5.1); Sodium 138 mmol/L (136-145)
[2020-01-28 19:58] LABS: Acetaminophen < 2 ug/ml (10-30); Salicylate < 1.7 mg/dl (2.8-20)
[2020-01-28 20:04] LABS: Alkaline Phosphatase 74 U/L (45-117); Bilirubin,Total 1.2 mg/dl (0.2-1); Creatine Kinase 146 U/L (39-308); Globulin 3.9 gm/dl (2.5-4.0); Total Protein 7.7 gm/dl (6.4-8.2); Troponin I < 0.015 ng/ml (0-0.045)
[2020-01-28 20:11] LABS: Amphetamines+Metham, Urine Neg (Neg); Barbiturates, Urine Neg (Neg); Benzodiazepine, Urine Neg (Neg); Cocaine, Urine Neg (Neg); MDMA (Ecstacy), Urine Neg (Neg); Methadone, Urine Neg (Neg); Opiate, Urine Neg (Neg); Phencyclidine, Urine Neg (Neg)
--- NOTE | 2020-01-28 20:15 | CT Scan Report ---
CT head/brain wo con CLINICAL HISTORY: 74 years-old Male with unresponsive. Patient is found acutely unresponsive. TECHNIQUE: Multiple axial CT images of the head were obtained without contrast. A dose lowering tech nique was utilized adhering to the principles of ALARA. COMPARISON: Head CT 10/17/2017 FINDINGS: Extensive intracranial hemorrhage, predominantly intraventricular in the lateral, third and fourth ve ntricles. There is associated hydrocephalus, transverse dimension of the lateral ventricles measuring 5.2 cm. The third and fourth ventricles are also at least moderately dilated. There is extensive sub arachnoid hemorrhage throughout which is noted within the suprasellar cistern, sylvian, ambient and i nterpeduncular cisterns, interpeduncular and quadrigeminal plate cisterns. Additional subarachnoid he morrhage is seen most prominently adjacent to the frontal lobes and insular cortices. Indistinctness of the suprasellar cistern. There is 8 mm rightward midline shift of the frontal lobes. The largest d egree of hemorrhage is noted within the anterior horn left lateral and third ventricles. There is ext ensive hypodensity within the periventricular white matter compatible with transependymal flow. Intra parenchymal hemorrhage of the left frontal lobe appears to measure up to approximately 4.4 cm. Cerebe llar tonsils appear to be low-lying. No acute calvarial fracture. Mastoid air cells are clear. IMPRESSION: 1. Extensive intracranial hemorrhage with large amount of intraventricular and subarachnoid hemorrhag e resolving in associated moderate hydrocephalus with periventricular hypodensities compatible with t ransependymal flow of CSF. 2. Intraparenchymal hemorrhage of the left frontal lobe. 3. 8 mm rightward midline shift at the level of the frontal lobes. Findings were discussed with Dr. Bedolla on 01/28/2020 at 8:04 PM. ACT 112: Negative or not required by law. The above report was generated using voice recognition software. It may contain grammatical, syntax o r spelling errors. Electronically signed by: Carlos Etienne M.D. 01/28/2020 8:13 PM
[2020-01-28 20:17] LABS: T4 Free Thyroxine 1.18 ng/dl (0.8-1.6)
[2020-01-28] MEDS ORDERED: MoRPHine SULFATE 4 MG/ML 1 ML CARP\\VIAL ONE ×2 (20:55→22:50)
[2020-01-28] MEDS ORDERED: MoRPHine SULFATE 10 MG/ML CARP/VIAL ONE (23:18)
[2020-01-29] MEDS ORDERED: LORazepam 0.5 MG/1 ML VIAL IV PRN (01:54)
[2020-01-29] MEDS ORDERED: ONDANSETRON INJ 2 MG/ML 2 ML VIAL IV PRN (01:54)
--- NOTE | 2020-01-29 02:21 | History and Physical Report ---
DATE OF ADMISSION: 01/29/2020 CHIEF COMPLAINT: Unresponsive, large intracranial hemorrhage. HISTORY OF PRESENT ILLNESS: A 74-year-old male with past medical history significant for coronary artery disease, hyperlipidemia, hydrocele, gout arthropathy, tobacco use disorder, as per family, the patient has brain aneurysm which is not amenable for repair, was found unresponsive at around 5:30 p.m. on 01/28/2020, yesterday at home. The patient lives with his who has dementia. The son just left about a hour prior when the patient was doing okay. No complaints, he was sitting in a chair and noticed he was little shaky and then froth coming from his mouth and then he was totally unresponsive at about 5:30 p.m. and she called the neighbors and EMS was called in and the patient was brought in here.Initially was intubated but imaging studies showed large intracranial hemorrhage and family has decided for comfort care and he was terminally extubated,.The patient currently having labored breathing.Family in the room, they want to keep him comfortable. There was no recent fever, cough, no complaint of any pain as per the family. ALLERGIES: No known drug allergies. PAST MEDICAL HISTORY: As mentioned above. PAST SURGICAL HISTORY: As per records, coronary artery stents, repair of hydrocele, laparoscopic hernia repair. MEDICATIONS: As per [facility], he was on simvastatin, lisinopril, allopurinol, naproxen, Nitrostat, omeprazole, Plavix, baby aspirin. FAMILY HISTORY: Significant for father had leukemia. Mild diabetes. Mother has heart disorder. SOCIAL HISTORY: and lives with his . No alcohol use, no drug use. He chews tobacco as per [facility]. REVIEW OF SYMPTOMS: Unobtainable at this time as patient is unresponsive. PHYSICAL EXAMINATION: GENERAL: The patient is having labored breathing. VITAL SIGNS: Temperature afebrile, pulse 64, respiratory rate 16, pulse currently 40s, respiratory rate may be 30s-40s, blood pressure 158/91 and oxygen 95% on room air. HEENT: Pupils were dilated and sluggish to react. CARDIOVASCULAR: S1, S2 heard, regular rate and rhythm, no murmur, no gallop. RESPIRATORY SYSTEM: Labored breathing. Accessory muscle use. No wheezing, no crackles. ABDOMEN: Soft, bowel sounds present. No distention. CENTRAL NERVOUS SYSTEM: The patient is unresponsive. EXTREMITIES: No edema, no erythema seen. LABORATORY DATA: WBC 17.4, hemoglobin 14.2, hematocrit 42.1, platelets 177. PT 12.6, INR 1.2. Sodium 138, potassium 2.9, chloride 106, bicarbonate 19, BUN 13, creatinine 1, serum glucose 231. Lactate 1.4, calcium 8.7, magnesium 1.7, total bilirubin 1.2, AST 36, ALT 26, alkaline phosphatase 74, ammonia 12.4, total creatinine kinase 146. Troponin I less than 0.015. TSH 5.4. Free T4 1.1. Urinalysis unremarkable, +1 ketones, +2 sugars. Urine drug screen, salicylate less than 1.7, acetaminophen less than 2, alcohol less than 3. IMAGING: Chest x-ray, cardiomegaly without overt pulmonary edema. Moderate sized hiatal hernia, endotracheal tube terminates 4.6 cm superior to the rebecca, indeterminate right paratracheal opacity, possible positional. CT of the head, extensive intracranial hemorrhage with large amount of intraventricular and subarachnoid hemorrhage, associated moderate hydrocephalus with periventricular hypodensities compatible with transependymal flow of CSF, intraparenchymal hemorrhage of the left frontal lobe, 8 mm rightward midline shift at the level of the frontal lobes. ASSESSMENT AND PLAN: This is a 74-year-old male who was found unresponsive at home and found to have large intracranial hemorrhage. 1. Large intracranial hemorrhage as mentioned above. Per his family, the patient has brain aneurysm, which was not amenable for any repair. Initially was intubated, but family decided for comfort care. The patient is currently status post extubation. He is having labored breathing. Pupils are somewhat dilated and sluggish to react. We will keep him comfortable with IV Ativan p.r.n. and IV morphine p.r.n. and admit to medical floor and monitor him.Comfort care only. SOY
[2020-01-29] MEDS: MoRPHine SULFATE 2 MG/ML CARP IV PRN ×2 (07:20→09:52)
--- NOTE | 2020-01-29 11:16 | Death Pronouncement Note ---
Date of Service January 29, 2020 Pronouncement Note Admission Date Admission Date: January 29, 2020 Date and Time of Date of : 01/29/20 Time of : 10:40 PCOD Preliminary cause of : Intracranial hemorrhage Hospital Course Hospital Course: pt admitted found unresponsive at home CT head shows large intracranial hge /with a large amount of intraventricular and subarachnoid hemorrhage, associated with 8 millimeter midline shift History of intracranial aneurysm, not amenable to surgery pt was made comfort care at 10:40 am today family members were at bedside CAUSE OF : large intracranial Hge CONTRIBUTING FACTOR : hx of intracranial aneurysm Additional Data Confirmation of : no pulse, no respirations, no heart sounds and pupils fixed and dilated Family: at bedside Attending/PCP notified?: Yes Attending physician: Sonal Concepcion MD Was code activated?: No Autopsy requested?: No customs examiner notified?: No Organ bank notified?: Yes Advance directives: Yes
[2020-01-29] MEDS ORDERED: SUCCINYLCHOLINE CHLORIDE 20 MG/ML 10 ML VIAL IV ONE (14:04)
--- NOTE | 2020-01-29 16:40 | Discharge Summary ---
Date of Service January 29, 2020 Admission HPI Per Admitting Provider DICTATED BY: Don Mitchell MD DATE OF ADMISSION: 01/29/2020 CHIEF COMPLAINT: Unresponsive, large intracranial hemorrhage. HISTORY OF PRESENT ILLNESS: A 74-year-old male with past medical history significant for coronary artery disease, hyperlipidemia, hydrocele, gout arthropathy, tobacco use disorder, as per family, the patient has brain aneurysm which is not amenable for repair, was found unresponsive at around 5:30 p.m. on 01/28/2020, yesterday at home. The patient lives with his who has dementia. The son just left about a hour prior when the patient was doing okay. No complaints, he was sitting in a chair and noticed he was little shaky and then froth coming from his mouth and then he was totally unresponsive at about 5:30 p.m. and she called the neighbors and EMS was called in and the patient was brought in here.Initially was intubated but imaging studies showed large intracranial hemorrhage and family has decided for comfort care and he was terminally extubated,.The patient currently having labored breathing.Family in the room, they want to keep him comfortable. There was no recent fever, cough, no complaint of any pain as per the family. Principal Diagnosis Intracranial hemorrhage with midline shift Patient Discharge Data Allergies Allergy/AdvReac Type Severity Reaction Status Date / Time warfarin Allergy Unknown . Unverified 10/17/17 09:48 Consultations 01/29/20 01:54 Consult Case Management - Discharge Planning Routine Ordered Studies 01/28/20 19:21 CT head/brain wo con Stat Hospital Course (1) Intracranial hemorrhage: Date and Time of Date of : 01/29/20 Time of : 10:40 PCOD Preliminary cause of : Intracranial hemorrhage Hospital Course Hospital Course: pt admitted found unresponsive at home CT head shows large intracranial hge /with a large amount of intraventricular and subarachnoid hemorrhage, associated with 8 millimeter midline shift History of intracranial aneurysm, not amenable to surgery pt was made comfort care at 10:40 am today family members were at bedside CAUSE OF : large intracranial Hge CONTRIBUTING FACTOR : hx of intracranial aneurysm Additional Data Confirmation of : no pulse, no respirations, no heart sounds and pupils fixed and dilated Family: at bedside Attending/PCP notified?: Yes Attending physician: Sonal Concepcion MD Was code activated?: No Autopsy requested?: No loan examiner notified?: No Organ bank notified?: Yes Advance directives: Yes Total Time Total Time Spent Total Time Spent (In Minutes): Patient Discharge Plan Discharge Items Patient Disposition: Discharge Diagnosis: Large intracranial hemorrhage, with midline shift Addtl Attending Provider Instructions: Patient while on comfort care
--- NOTE | 2020-01-29 17:19 | Electrocardiogram Report ---
Test Reason : Blood Pressure : / mmHG Vent. Rate : 068 BPM Atrial Rate : 068 BPM P-R Int : 174 ms QRS Dur : 084 ms QT Int : 394 ms P-R-T Axes : 040 008 000 degrees QTc Int : 418 ms Sinus rhythm with marked sinus arrhythmia with ventricular escape complexes Nonspecific ST abnormality Abnormal ECG When compared with ECG of 19-JUN-2017 18:25, [place] interval has decreased Sinus rhythm is now with ventricular escape complexes Questionable change in QRS axis ST now depressed in Anterior leads Nonspecific T wave abnormality now evident in Inferior leads Confirmed by Hemant Rachel ([id number]) on 01/29/2020 5:19:26 PM Referred By: REFERRED SELF Confirmed By:Jaime Rachel
== END 2020-01-29 14:05 | disposition expired | DRG 64 ==
LOC: ED 19:08 → 3W 01-29 01:05 → SUATTDRO 01-29 01:05 → 3W 01-29 01:30